=== PATIENT | female | born 1970 | race African-American/Black ===

== ENCOUNTER 2018-08-28 17:06 | Emergency (ER) | payer OTHER ==
[~2018-08-28] VITALS: Ht 170.2 cm; Wt 93.9 kg
[2018-08-28] MEDS ORDERED: ASPIR 8181 MG PO (17:31)
[2018-08-28] MEDS ORDERED: ZOCOR 10 MG TAB10 M1 PO (17:31)
[2018-08-28] MEDS ORDERED: COZAAR 25 MG TA25 M1 PO (17:31)
[2018-08-28] MEDS ORDERED: TOPROL XL100 MG PO (17:31)
[2018-08-28] MEDS ORDERED: AMITRIPTYLINE H10 M1 PO (17:32)
[2018-08-28] MEDS ORDERED: NOVOLOG100 UNIT/1 SUBQ (17:32)
[2018-08-28 17:48] LABS: ABSOLUTE NEUTROPHILS 4.9 thou/uL (1.4-8.2); BASOPHILS 0.9 % (0.0-2.0); EOSINOPHILS 3.3 % (0.0-3.0); HEMATOCRIT 35.1 % (37.0-47.0); HEMOGLOBIN 11.9 gm/dL (12.0-15.0); LYMPHOCYTES 24.4 % (24.0-44.0); MCH 29.1 pg (26.0-34.0); MCHC 33.7 g/dL (28.0-37.0); MCV 86.2 fL (80.0-100.0); MONOCYTES 5.1 % (1.0-8.0); PLATELET COUNT 309 thou/uL (150-400); POLYS 66.3 % (36.0-66.0); RBC 4.08 mil/uL (4.20-5.00); RDW 13.8 % (10.5-14.5); WBC 7.4 thou/uL (4.0-11.0)
[2018-08-28 17:49] LABS: URINE BILIRUBIN NEGATIVE (Negative); URINE BLOOD 2+ (Negative); URINE CLARITY CLEAR; URINE COLOR YELLOW; URINE GLUCOSE-RANDOM* TRACE (Negative); URINE KETONES NEGATIVE (Negative); URINE NITRITE-REFLEX NEGATIVE (Negative); URINE PROTEIN (DIPSTICK) 2+ (Negative); URINE UROBILINOGEN 0.2 E.U./dl (0.2-1.0)
[2018-08-28 17:50] LABS: URINE LEUKOCYTES-REFLEX NEGATIVE (Negative)
[2018-08-28 17:57] LABS: CALCIUM 8.9 mg/dL (8.5-10.1); CREATININE 1.9 mg/dL (0.6-1.0); POTASSIUM 4.3 mmol/L (3.5-5.1)
[2018-08-28 18:02] LABS: BACTERIA-REFLEX 1-9 Few /HPF (None Seen); CASTS None Seen /LPF (None Seen); CRYSTALS None Seen /LPF (None Seen); SQUAMOUS None Seen /LPF (0-3); URINE RBC 3-10 Few /HPF (0-2); URINE WBC-REFLEX None Seen /HPF (0-5)
[2018-08-28 18:02] LABS: ALBUMIN 3.4 g/dL (3.4-5.0); TOTAL BILIRUBIN 0.6 mg/dL (<0.1-1.0); TOTAL PROTEIN 7.7 g/dL (6.4-8.2)
[2018-08-28] MEDS ORDERED: ONDANSETRON HCL4 M2 PO (18:52)
[2018-08-28 19:26] VITALS: BP 192/92
--- NOTE | 2018-08-28 21:05 | EKG ---
[address] [place] [address] ELECTROCARDIOGRAM REPORT Name: YASSINE MOE Room #: DEP [facility]az[id number] Admission: 08/28/18 Attend Phys: Discharge: 08/28/18 Date of : 70 Report #: [id number] THIS REPORT FOR: //name// [facility] ED Test Date: 2018-08-28 Test Time: 17:59:40 Pat Name: YASSINE MOE Department: Room: Gender: F Continuity Reader: LINDY : 1970 Requested By: Kelly Herron Order Number: [id number] MD: Carlitos Knutson Measurements Intervals [place] Rate: 74 P: 19 [place]: 121 QRS: 76 QRSD: 82 T: 88 QT: 423 QTc: 470 Interpretive Statements Sinus rhythm Borderline T abnormalities, lateral leads No previous ECG available for comparison Electronically Signed On 08-28-2018 21:05:17 [employer] by Carlitos Knutson [email or web address] <ELECTRONICALLY SIGNED> By: Carlitos Knutson MD 08/28/18 [id number] 1759 MD ELLEN Quinn
== END 2018-08-28 19:26 | disposition home or self-care (01) ==
LOC: ER 17:06
PROVIDERS: Nurse Practitioner Family
DX: R19.7 Diarrhea, unspecified (principal); R10.9 Unspecified abdominal pain; I10 Essential (primary) hypertension; E11.9 Type 2 diabetes mellitus without complications